=== PATIENT | male | born 1995 ===

== ENCOUNTER 2017-10-05 01:28 | Emergency (ER) | payer BC, OTHER ==
[2017-10-05] MEDS ORDERED: Silver Nitrate/Potassium Nitr* 1 EA STICK ONE ×2 (02:04→02:07)
--- NOTE | 2017-10-05 02:24 | ED ---
Layo Eric Rebecca, scribed for Arthur Gramajo MD on 10/05/17 at 0206 . Throat Pain/Nasal Congestion - HPI Summary HPI Summary: Pt is a 22 y/o M who presents to ED c/o epistaxis. Pt reports that at 0000 this morning, his R nare spontaneously began bleeding. Sx lasted for a bit over an hour, from about 2783-4551. Upon arrival, his nose has ceased bleeding. Sx aggravated by nothing, alleviated by spontaneous resolution. Denies any other symptoms, including any pain. Pt reports he has gotten frequent episodes of nose bleeds (at least 1x per week) for his entire life. Has never seen an ENT and does not know the cause of such episodes. Uses electric heat in his house and does not do anything to moisten the nose. - History of Current Complaint Chief Complaint: EDEpistaxis Time Seen by Provider: 10/05/17 01:50 Hx Obtained From: Patient Onset/Duration: Resolved Associated Signs And Symptoms: Positive: Negative Related History: Other (Noted In Comments) - Prior similar episodes - Allergies/Home Medications Allergies/Adverse Reactions: Allergies Allergy/AdvReac Type Severity Reaction Status Date / Time No Known Allergies Allergy Verified 10/05/17 01:36 PMH/Surg Hx/FS Hx/Imm Hx Endocrine/Hematology History: Denies: Hx Diabetes, Hx Thyroid Disease Cardiovascular History: Denies: Hx Hypertension Respiratory History: Reports: Hx Asthma Denies: Hx Chronic Obstructive Pulmonary Disease (COPD) GI History: Denies: Hx Ulcer - Immunization History Date of Tetanus Vaccine: unk Date of Influenza Vaccine: utd Infectious Disease History: No Infectious Disease History: Denies: Hx Hepatitis, Hx Human Immunodeficiency Virus (HIV), Traveled Outside the [place] in Last 30 Days - Family History Known Family History: Positive: Unknown - Social History Alcohol Use: Weekly Substance Use Type: Reports: None Smoking Status (MU): Never Smoked Tobacco Review of Systems Negative: Fever Positive: Epistaxis - resolved Positive: Other - NEGATIVE: pain All Other Systems Reviewed And Are Negative: Yes Physical Exam - Summary Physical Exam Summary: VITAL SIGNS: Reviewed. GENERAL: ~Patient is a well-developed and nourished male who is lying comfortable in the stretcher. Patient is not in any acute respiratory distress. HEAD AND FACE: No signs of trauma. No ecchymosis, hematomas or skull depressions. No sinus tenderness. EYES: PERRLA, EOMI x 2, No injected conjunctiva, no nystagmus. EARS: Hearing grossly intact. Ear canals and tympanic membranes are within normal limits. MOUTH AND NOSE: There is a large raw area without active bleeding over the medial side of the right nostril. NECK: Supple, trachea is midline, no adenopathy, no JVD, no carotid bruit, no c- spine tenderness, neck with full ROM. CHEST: Symmetric, no tenderness at palpation LUNGS: Clear to auscultation bilaterally. No wheezing or crackles. CVS: Regular rate and rhythm, S1 and S2 present, no murmurs or gallops appreciated. EXTREMITIES: FROM in all major joints, no edema, no cyanosis or clubbing. NEURO: Alert and oriented x 3. No acute neurological deficits. Speech is normal and follows commands. SKIN: Dry and warm Triage Information Reviewed: Yes Vital Signs On Initial Exam: Initial Vitals Temp Pulse Resp BP Pulse Ox 98.2 F 76 16 166/87 99 10/05/17 01:30 10/05/17 01:30 10/05/17 01:30 10/05/17 01:30 10/05/17 01:30 Vital Signs Reviewed: Yes Procedures - Procedure Summary Procedure Summary: Epistaxis cauterization: The raw area of the right nostril was cauterized with silver nitrate. There is no bleeding and the patient will be observed for a half an hour. Diagnostics - Vital Signs Vital Signs Temp Pulse Resp BP Pulse Ox 10/05/17 01:30 98.2 F 76 16 166/87 99 - Laboratory Lab Statement: Any lab studies that have been ordered have been reviewed, and results considered in the medical decision making process. Re-Evaluation - Re-Evaluation First Eval Re-Evaluation Time: 02:07 Comment: Performed cauterization Second Eval Re-Evaluation Time: 02:20 Change: Improved Comment: There is no furhter bleeding, discussed D/C with the pt. EENT Course/Dx - Course Assessment/Plan: Pt is a 22 y/o M who presents to ED c/o epistaxis. Pt reports that at 0000 this morning, his R nare spontaneously began bleeding. Sx lasted for a bit over an hour, from about 3662-9220. Upon arrival, his nose has ceased bleeding. Sx aggravated by nothing, alleviated by spontaneous resolution. Denies any other symptoms, including any pain. Pt reports he has gotten frequent episodes of nose bleeds (at least 1x per week) for his entire life. Has never seen an ENT and does not know the cause of such episodes. Uses electric heat in his house and does not do anything to moisten the nose. Cauterization of the raw are of the right nostril was done using silver nitrate which improved symptoms. Pt will be D/C to home with Dx of epistaxis with a followup with ENT. He understands and agrees. - Diagnoses Provider Diagnoses: Epistaxis Discharge - Sign-Out/Discharge Documenting (check all that apply): Discharge - Discharge Plan Condition: Stable Disposition: HOME Patient Education Materials: Nosebleed (ED) Referrals: Non Staff,Doctor [Primary Care Provider] - Ariel Philip MD [Medical Doctor] - 3 Days Additional Instructions: Use nasal spray 4x a day. Follow-up with ENT. Return to ED for any returning or worsening symptoms. The documentation as recorded by the Layo kennedy Rebecca accurately reflects the service I personally performed and the decisions made by me, Arthur Gramajo MD.
[2017-10-05 03:06] VITALS: BP 0/0
[2017-10-05] MEDS ORDERED: Saline NASAL SPRAY 0.65%* BTL BOTH NARES SCH (09:00)
== END 2017-10-05 02:30 | disposition home or self-care (01) ==
LOC: ED 01:28
DX: R04.0 Epistaxis (principal)
CPT/HCPCS: 99282; A9270-GY